=== PATIENT | female | born 1955 | race Caucasian/White ===

== ENCOUNTER 2022-07-22 13:59 | Outpatient (CLI) | payer MEDICARE, SELFPAY ==
--- NOTE | ~2022-07-22 | XR_ITS ---
EXAM: XR hand BI arthritis min 3V DATE: 07/22/2022 14:31 HISTORY: M19.90 - Unspecified osteoarthritis, unspecified site . COMPARISON: None available. FINDINGS: Decreased mineralization. No fracture or dislocation. No lytic or blastic lesion. Hyperext ension of the left first MCP joint and severe narrowing sclerosis and osteophytosis at the left trape ziometacarpal joint. Moderate narrowing and sclerosis at the left triscaphe joint. Chondrocalcinosis. . No erosion or periosteal change. Soft tissues within normal limits. 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 Severe arthritic change at the left trapeziom etacarpal joint. Reviewed, dictated and finalized at location K. 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 Severe arthritic change at the left trapeziometacarpal joint.
== END 2022-07-22 14:00 ==
PROVIDERS: PCP Internal Medicine; Visit Provider Internal Medicine
DX: M19.90 Unspecified osteoarthritis, unspecified site (principal); M19.032 Primary osteoarthritis, left wrist
CPT/HCPCS: 73130

== ENCOUNTER → 2022-11-03 11:46 | Outpatient (CLI) | payer MEDICARE, SELFPAY ==
--- NOTE | ~2022-11-03 | DEXA_ITS ---
Bone Density Report Name: BENSON POWELL Age: 67 Sex: Female Ethnicity: White Date of : 1955 Indication: postmenopausal; screening for osteoporosis; height loss; history of glucocorticoids; prior fracture; cancer; hysterectomy; Referring Provider: Ana Maria Olmedo Study: Bone densitometry was performed. Exam Date: November 03, 2022 Accession number: [id number] Bone Density: Region BMD T-score Z-score Classification AP Spine (L1-L4) 1.398 3.2 5.0 Normal World Health Organization criteria for BMD impression classify patients as: Normal (T-score at or above -1.0), Osteopenia (T-score between -1.0 and -2.5), or Osteoporosis (T-score at or below -2.5). Clinical Information Provided by Patient: Has had a low trauma fracture Smokes Has taken Glucocorticoids Is being treated for osteoporosis Has used the following medications: Evista (i.e. raloxifene), Vitamin D, Calcium, MTV Has the following medical conditions: Cancer, Hysterectomy, RIGHT BREAST CA WITH BILATERAL MASTECTOMY AND RADIATION IN 2017 Patient maximum height was 64.0 Menopause Age: 50 No regular weight bearing exercise Drinks caffeinated beverages Onset of menses at age 13 Number of children 2 Impression: The patient has normal bone mass. The patient has risk factors, including: smoking, previous fracture, history of glucocorticoid therapy. Discussion: It is important to ask patients whether they are taking their medications and to encourage continued and appropriate compliance with their osteoporosis therapies to reduce fracture risk. It is also important to review their risk factors and encourage appropriate calcium and vitamin D intakes, exercise, fall prevention and other lifestyle measures. Follow-Up: Consider a repeat BMD and Vertebral Fracture Assessment (VFA) exam in 2 years or sooner if medically necessary, to reassess this patient's status. Reported by: [facility] on 11/03/2022 12:22:00 PM. Reviewed, dictated and finalized at location ABoris RANKIN
== END ==
PROVIDERS: PCP Nurse Practitioner Family; Visit Provider Internal Medicine
DX: M81.0 Age-related osteoporosis without current pathological fracture (principal); Z79.52 Long term (current) use of systemic steroids
CPT/HCPCS: 77080